=== PATIENT | male | born 1975 | race American Indian/Alaskan Native ===

== ENCOUNTER 2018-10-24 15:03 | Emergency (ER) | payer OTHER ==
--- NOTE | 2018-10-24 15:45 | ER ---
Nurse's Notes [facility] Name: Jairo Salgado Age: 42 yrs Sex: Male : 1975 Arrival Date: 10/24/2018 Time: 15:06 Bed 5 Private MD: Diagnosis: Facial Swelling Presentation: 10/24 15:13 Presenting complaint: Patient states: "I have swelling in my forehead when I am aj1 sleeping" Reports that this has been going on for the past month. Transition of care: patient was not received from another setting of care. Onset of symptoms was August 2018. Risk Assessment: Do you want to hurt yourself or someone else? Patient reports no desire to harm self or others. Initial Sepsis Screen: Does the patient meet any 2 criteria? No. Patient's initial sepsis screen is negative. Does the patient have a suspected source of infection? No. Patient's initial sepsis screen is negative. Care prior to arrival: None. 15:13 Method Of Arrival: Ambulatory aj 15:13 Acuity: JOAINE 4 aj1 Triage Assessment: 15:14 General: Appears in no apparent distress. comfortable, Behavior is calm, cooperative, aj1 appropriate for age. Pain: Denies pain. Neuro: Level of Consciousness is awake, alert, obeys commands. Cardiovascular: Patient's skin is warm and dry. Respiratory: Airway is patent Respiratory effort is even, unlabored, Respiratory pattern is regular, symmetrical. Historical: - Allergies: 15:14 Aspirin; aj1 - Home Meds: 15:14 None [Active]; aj1 - PMHx: 15:14 None; aj1 - Immunization history:: Adult Immunizations up to date. - Social history:: Smoking status: Patient/guardian denies using tobacco. - Ebola Screening: : Patient denies travel to an Ebola-affected area in the 21 days before illness onset. Screenin:00 Abuse screen: Denies threats or abuse. Denies injuries from another. Nutritional sv screening: No deficits noted. Tuberculosis screening: No symptoms or risk factors identified. Fall Risk None identified. Assessment: 16:00 Reassessment: Patient appears in no apparent distress at this time. Patient and/or ss family updated on plan of care and expected duration. Pain level reassessed. Patient is alert, oriented x 3, equal unlabored respirations, skin warm/dry/pink. Patient denies pain at this time. Vital Signs: 15:14 BP 138 / 79; Pulse 74; Resp 18; Temp 97.8; Pulse Ox 100% on R/A; Weight 69 kg (R); aj1 Height 5 ft. 8 in. (174 cm) (R); Pain 0/10; 15:14 Body Mass Index 22.79 (69.00 kg, 174 cm) [facility] ED Course: 15:06 Patient arrived in ED. as 15:14 Triage completed. [facility] 15:14 Arm band placed on Patient placed in an exam room. [facility] 15:17 Luz Mandujano, NELLA is Primary Nurse. 15:21 Daniel Cardoso PA is PHCP. [facility] 15:21 Kristian Stewart MD is Attending Physician. [facility] 16:00 Patient has correct armband on for positive identification. 16:00 No provider procedures requiring assistance completed. Patient did not have IV access ss during this emergency room visit. Administered Medications: No medications were administered Outcome: 15:44 Discharge ordered by MD. [facility] 16:00 Discharged to home ambulatory. 16:00 Condition: good 16:00 Discharge instructions given to patient, Instructed on discharge instructions, follow up and referral plans. medication usage, Demonstrated understanding of instructions, follow-up care, medications, Prescriptions given X 3. 16:00 Patient left the ED. Signatures: Rhonda Buck, RN RN aj1 Ese Nielsen RN RN Daniel Cardoso PA PA jmm Martinez, Amelia as Luz Mandujano RN RN
--- NOTE | 2018-10-24 15:45 | EDPHYS ---
Physician Documentation [facility] Name: Jairo Salgado Age: 42 yrs Sex: Male : 1975 Arrival Date: 10/24/2018 Time: 15:06 Bed 5 Private MD: ED Physician Kristian Stewart HPI: 10/24 15:29 This 42 yrs old Other Male presents to ER via Ambulatory with complaints of Facial jmm Swelling. 15:29 The patient's rash thought to be caused by swelling. The rash is located on the jmm forehead. Onset: The symptoms/episode began/occurred gradually, 1 month(s) ago. Associated signs and symptoms: Pertinent negatives: difficulty breathing, fever, Pain swelling of lips, swelling of throat, swelling of tongue, vomiting. This is a 42 year old male with no known chronic medical conditions that presents to the ED with complaints of swelling to the right side of his forehead upon awakening daily for the past month. Patient denies pain, denies fever, denies vision changes. Patient states swelling decreases throughout the day. . Historical: - Allergies: 15:14 Aspirin; aj1 - Home Meds: 15:14 None [Active]; aj1 - PMHx: 15:14 None; aj1 - Immunization history:: Adult Immunizations up to date. - Social history:: Smoking status: Patient/guardian denies using tobacco. - Ebola Screening: : Patient denies travel to an Ebola-affected area in the 21 days before illness onset. ROS: 15:29 Constitutional: Negative for fever, chills, and weight loss, Cardiovascular: Negative jmm for chest pain, palpitations, and edema, Respiratory: Negative for shortness of breath, cough, wheezing, and pleuritic chest pain. 15:29 Eyes: Negative for injury, pain, redness, and discharge, ENT: Negative for injury, pain, and discharge. 15:29 ENT: Positive for 15:29 Skin: Positive for swelling. 15:29 Neuro: Negative for headache. 15:29 All other systems are negative. Exam: 15:29 Constitutional: This is a well developed, well nourished patient who is awake, alert, jmm and in no acute distress. Head/Face: atraumatic. Eyes: EOMI, no conjunctival erythema appreciated ENT: Moist Mucus Membranes Neck: Trachea midline, Supple Chest/axilla: Normal chest wall appearance and motion. Cardiovascular: Regular rate and rhythm. No edema appreciated Respiratory: Normal respirations, no respiratory distress appreciated Abdomen/GI: Non distended, soft Back: Normal ROM Skin: General appearance color normal MS/ Extremity: Moves all extremities, no obvious deformities appreciated, no edema noted to the lower extremities Neuro: Awake and alert, normal gait Psych: Behavior is normal, Mood is normal, Patient is cooperative and pleasant Vital Signs: 15:14 BP 138 / 79; Pulse 74; Resp 18; Temp 97.8; Pulse Ox 100% on R/A; Weight 69 kg (R); aj1 Height 5 ft. 8 in. (174 cm) (R); Pain 0/10; 15:14 Body Mass Index 22.79 (69.00 kg, 174 cm) aj1 MDM: 15:29 Patient medically screened. [facility] 15:29 Counseling: I had a detailed discussion with the patient and/or guardian regarding: the [facility] historical points, exam findings, and any diagnostic results supporting the discharge/admit diagnosis, the need for outpatient follow up, to return to the emergency department if symptoms worsen or persist or if there are any questions or concerns that arise at home. ED course: Patient is alert and non toxic in appearance in the ED. I do not suspect Temporal arteritis, non tender, no visual changes. I do not suspect an infectious process. Patient prescribed antihistamines and given strict return precautions if symptoms worsen. Patient understood and agrees with the plan of care. . 15:41 Data reviewed: vital signs, nurses notes. [facility] Administered Medications: No medications were administered Disposition: 10/25 11:22 Co-signature as Attending Physician, Kristian Stewart MD I agree with the assessment and severino plan of care. Disposition: 10/24/18 15:44 Discharged to Home. Impression: Facial Swelling. - Condition is Stable. - Discharge Instructions: Hives. - Prescriptions for Benadryl 25 mg Oral Capsule - take 1 capsule by ORAL route every 6 hours As needed; 30 tablet. Pepcid 20 mg Oral Tablet - take 1 tablet by ORAL route every 12 hours for 10 days; 20 tablet. Medrol (Robert) 4 mg Oral Tablets, Dose Pack - take 1 tablet by ORAL route as directed - follow package instructions; 1 packet. - Medication Reconciliation Form, Thank You Letter, Antibiotic Education, Prescription Opioid Use form. - Follow up: Private Physician; When: 2 - 3 days; Reason: Recheck today's complaints, Continuance of care, Re-evaluation by your physician. Signatures: Rhonda Buck, RN RN aj1 Kristian Stewart MD MD cha Mickail, Joel, PA PA jmm Smirch, Shelby, RN RN ss Corrections: (The following items were deleted from the chart) 10/24 16:00 15:44 10/24/2018 15:44 Discharged to Home. Impression: Facial Swelling. Condition is ss Stable. Forms are Medication Reconciliation Form, Thank You Letter, Antibiotic Education, Prescription Opioid Use. Follow up: Private Physician; When: 2 - 3 days; Reason: Recheck today's complaints, Continuance of care, Re-evaluation by your physician. sharri
== END 2018-10-24 16:00 | disposition home or self-care (01) ==
LOC: ER 15:03
DX: R22.9 Localized swelling, mass and lump, unspecified (principal); Z88.6 Allergy status to analgesic agent
CPT/HCPCS: 99282